=== PATIENT | male | born 1955 | race Caucasian/White ===

== ENCOUNTER 2017-10-02 03:07 | Inpatient (IN) | payer MEDICAID ==
[~2017-10-02] VITALS: Ht 177.8 cm; Wt 122.6 kg
[2017-10-02 03:18] VITALS: Ht 177.8 cm; Wt 122.6 kg
[2017-10-02 04:00] LABS: BASOPHIL % 0.4 % (0-2); PLATELET COUNT 216 x10^3mcL (130-400); RED CELL DISTRIBUTION WIDTH 13.4 % (11.5-14.5)
[2017-10-02 04:04] LABS: UA SPECIFIC GRAVITY >=1.030 (1.005-1.035); microscopic required? YES; urine erythrocyte NEGATIVE (NEGATIVE)
[2017-10-02 04:27] LABS: CALCIUM 9.1 mg/dL (8.5-10.1); CHLORIDE SERUM 106 mmol/L (98-107); GFR1 > 60 mL/min; GLUCOSE SERUM 139 mg/dL (74-106); POTASSIUM SERUM 3.8 mmol/L (3.5-5.1); SODIUM SERUM 139 mmol/L (136-145)
[2017-10-02 04:31] LABS: ALBUMIN 3.7 g/dL (3.4-5.0); ALKALINE PHOSPHATASE 68 U/L (46-116); ALT/SGPT 43 U/L (16-63); AST/SGOT 27 U/L (15-37); BILIRUBIN TOTAL 0.62 mg/dL (0.20-1.00); LIPASE 138 IU/L (73-393); TOTAL PROTEIN, SERUM 7.3 g/dL (6.4-8.2)
[2017-10-02 08:20] LABS: MAGNESIUM 2.2 mg/dL (1.8-2.4); PHOSPHOROUS 1.8 mg/dL (2.5-4.9)
[2017-10-02 08:22] VITALS: BP 145/92
[2017-10-02 08:26] LABS: CHOLESTEROL/HDL RATIO 3.9; T3 TOTAL 1.35 ng/mL
[2017-10-02 09:24] LABS: AMPHETAMINE QUAL UR NONE DETECTED (See below)
[2017-10-02 11:22] LABS: FREE T4 1.27 ng/dL (0.76-1.46); FREE THYROXINE INDEX 3.3 ug/dL (1.4-4.5); T4(THYROXINE) 9.5 ug/dL (4.7-13.3)
[2017-10-02 13:04] VITALS: BP 128/71
[2017-10-02 17:52] VITALS: BP 107/70
[2017-10-02 17:55] VITALS: BP 110/67
[2017-10-02 20:00] VITALS: BP 113/60
[2017-10-02 21:30] VITALS: BP 110/62; BP 113/60
[2017-10-03 05:20] VITALS: BP 111/61
[2017-10-03 05:30] VITALS: BP 98/62
[2017-10-03 06:57] LABS: BASOPHIL % 0.3 % (0-2); PLATELET COUNT 185 x10^3mcL (130-400); RED CELL DISTRIBUTION WIDTH 13.6 % (11.5-14.5)
[2017-10-03 07:12] LABS: CALCIUM 8.3 mg/dL (8.5-10.1); CARBON DIOXIDE 25.4 mmol/L (21-32); CHLORIDE SERUM 103 mmol/L (98-107); CREATININE SERUM 0.9 mg/dL (0.7-1.3); GFR1 > 60 mL/min; GLUCOSE SERUM 105 mg/dL (74-106); PHOSPHOROUS 2.7 mg/dL (2.5-4.9); POTASSIUM SERUM 4.1 mmol/L (3.5-5.1); SODIUM SERUM 136 mmol/L (136-145)
[2017-10-03 07:25] VITALS: BP 112/65
[2017-10-03 10:40] VITALS: BP 107/64
[2017-10-03 17:37] VITALS: BP 139/74
[2017-10-03 21:13] VITALS: BP 124/67
[2017-10-04 05:44] VITALS: BP 105/66
[2017-10-04 06:50] LABS: BASOPHIL % 0.3 % (0-2); PLATELET COUNT 194 x10^3mcL (130-400); RED CELL DISTRIBUTION WIDTH 14.1 % (11.5-14.5)
[2017-10-04 06:56] LABS: CALCIUM 8.2 mg/dL (8.5-10.1); CHLORIDE SERUM 106 mmol/L (98-107); CREATININE SERUM 0.9 mg/dL (0.7-1.3); GFR1 > 60 mL/min; GLUCOSE SERUM 108 mg/dL (74-106); MAGNESIUM 2.2 mg/dL (1.8-2.4); PHOSPHOROUS 3.2 mg/dL (2.5-4.9); POTASSIUM SERUM 4.2 mmol/L (3.5-5.1); SODIUM SERUM 137 mmol/L (136-145)
[2017-10-04 09:53] VITALS: BP 120/73
[2017-10-04 12:32] VITALS: BP 117/72
[2017-10-04] MEDS ORDERED: KEFLEX500 M1 PO (12:55)
[2017-10-04 13:44] VITALS: BP 117/72
[2017-10-04 17:07] VITALS: BP 118/65
[2017-10-04 17:40] VITALS: BP 118/65
== END 2017-10-04 20:03 | disposition home or self-care (01) | DRG 263 ==
LOC: ED 03:07 → DU 06:26
PROVIDERS: Emergency Medicine; Internal Medicine; Surgery
PROC: 0FT44ZZ Resection of Gallbladder, Percutaneous Endoscopic Approach (ICD-10-PCS; principal; 2017-10-03 08:00)
DX: K80.00 Calculus of gallbladder with acute cholecystitis without obstruction (principal); N17.0 Acute kidney failure with tubular necrosis; R80.9 Proteinuria, unspecified; K76.89 Other specified diseases of liver; K76.0 Fatty (change of) liver, not elsewhere classified; I10 Essential (primary) hypertension; F17.220 Nicotine dependence, chewing tobacco, uncomplicated; E66.9 Obesity, unspecified; Z68.38 Body mass index [BMI] 38.0-38.9, adult; Z79.82 Long term (current) use of aspirin
CPT/HCPCS: 83880; 84439; 94150; 97535-GP; J0330; J0690; J2175; J2250; J2270; J2405; J2543; J2704; J2710; J3010; J3490; J7030; J7120; Q0092

== ENCOUNTER 2019-01-09 15:19 | Emergency (ER) | payer BC ==
[~2019-01-09] VITALS: Ht 177.8 cm; Wt 134.7 kg
[~2019-01-09 15:19] MED LIST: KEFLEX500 M1 PO
[2019-01-09 15:24] VITALS: Ht 177.8 cm; Wt 134.7 kg
[2019-01-09 16:47] LABS: BASOPHIL % 0.4 % (0-2); PLATELET COUNT 220 x10^3mcL (130-400); RED CELL DISTRIBUTION WIDTH 13.5 % (11.5-14.5)
[2019-01-09 17:19] LABS: CALCIUM 8.4 mg/dL (8.5-10.1); CARBON DIOXIDE 25.2 mmol/L (21-32); CHLORIDE SERUM 106 mmol/L (98-107); GFR1 > 60 mL/min; GLUCOSE SERUM 79 mg/dL (74-106); POTASSIUM SERUM 3.9 mmol/L (3.5-5.1); SODIUM SERUM 140 mmol/L (136-145)
[2019-01-09 17:25] LABS: ALBUMIN 3.4 g/dL (3.4-5.0); ALKALINE PHOSPHATASE 73 U/L (46-116); ALT/SGPT 41 U/L (16-63); AST/SGOT 17 U/L (15-37); BILIRUBIN TOTAL 0.59 mg/dL (0.20-1.00); URIC ACID 5.6 mg/dL (3.5-7.2)
[2019-01-09 17:27] LABS: C REACTIVE PROTEIN < 0.2 mg/dL (<=0.9)
[2019-01-09 18:30] VITALS: BP 129/71
== END 2019-01-09 18:30 | disposition home or self-care (01) ==
LOC: ED 15:19
PROVIDERS: Emergency Medicine
DX: L03.115 Cellulitis of right lower limb (principal); E78.00 Pure hypercholesterolemia, unspecified; Z90.49 Acquired absence of other specified parts of digestive tract
CPT/HCPCS: J0696